=== PATIENT | female | born 1975 | race Caucasian/White ===

== ENCOUNTER → 2017-02-16 | Outpatient (CLI) | payer MEDICAID ==
[~2017-02-16] MED LIST: AMITRIPTYLINE 550 MG OR; AMOXICILLIN500 M2 PO; AUGMENTIN1 TA2 PO; BACTRIM DS 8001 TAB PO; DICLOFENAC 50MG50 MG PO; FLEXERIL10 MG PO; GABAPENTIN300 MG PO; IBUPROFEN200 MG PO; KEFLEX 500MG.500 MG PO; MELOXICAM15 MG PO; MELOXICAM7.5 MG PO; METOPROLOL25 MG PO; PERCOCET 325 MG1 TA3 PO; PREDNISONE 20MG20 MG PO; PRILOSEC OTC20 MG PO; PROZAC 20MG CAP20 MG PO; ROBAXIN-750750 MG PO; TESSALON PERLE200 MG PO; TYLENOL ES500 M1 PO; VOLTAREN75 MG PO; XANAX 1MG TABLET1 MG PO; [UNRECOGNIZED DRUG - OTHER] PO
[2017-02-16 17:14] LABS: HEMOGLOBIN 13.9 g/dL (12.2-16.2)
[2017-02-16 17:15] LABS: LYMPH % 44.9 % (10-50.0)
[2017-02-16 18:27] LABS: URINE BILIRUBIN - DIPSTICK NEGATIVE (NEG); URINE BLOOD 3+ (NEG)
[2017-02-16 19:28] LABS: BUN 7 mg/dL (7-18)
[2017-02-16 19:37] LABS: URINE SQUAMOUS CELLS TNTC #/hpf (0-5)
[2017-02-16 19:38] LABS: GFR (ESTIMATED) 110 ML/MIN (59-)
[2017-02-18 08:41] LABS: FSH 13.2 mIU/mL (.); LH 13.1 mIU/mL (.); Progesterone <0.1 ng/mL (.); Vitamin D, 25-Hydroxy 10.9 ng/mL (30.0-100.0)
[2017-02-18 09:38] LABS: HBsAg Screen Negative (Negative); Hep A Ab, IgM Negative (Negative); Hep B Core Ab, IgM Negative (Negative); Hep C Virus Ab >11.0 (0.0-0.9)
[2017-02-19 16:37] LABS: Estrogens, Total 110 pg/mL (.)
== END ==
LOC: LAB 15:54
PROVIDERS: Emergency Medicine
DX: R53.83 Other fatigue (principal); R06.02 Shortness of breath; F41.9 Anxiety disorder, unspecified; F43.20 Adjustment disorder, unspecified; K21.9 Gastro-esophageal reflux disease without esophagitis; E55.9 Vitamin D deficiency, unspecified; E66.3 Overweight; Z79.899 Other long term (current) drug therapy; Z72.0 Tobacco use